=== PATIENT | female | born 1960 | race Caucasian/White ===

== ENCOUNTER → 2016-06-16 | Outpatient (REF) | payer OTHER ==
[2016-06-16 15:29] LABS: URINE CREATININE 24 HR 1017 mg/24hr (800-2800); URINE TOTAL VOLUME-24 HRS 1375 mL
== END ==
LOC: LAB 14:50
PROVIDERS: ATTEND Family Medicine
DX: N20.0 Calculus of kidney (principal)
CPT/HCPCS: 81050; 82507; 82570

== ENCOUNTER → 2016-06-23 | Outpatient (CLI) | payer OTHER | LOC: RAD 12:24 | PROVIDERS: ATTEND Physician Assistant Medical | DX: N23 Unspecified renal colic (principal); N20.0 Calculus of kidney | CPT/HCPCS: 74176 ==

== ENCOUNTER → 2016-07-10 | Outpatient (CLI) | payer OTHER ==
[~2016-07-10] MED LIST: AMOX-358 PO; HYDR-3702 PO; NO HOME MEDICATIONS
--- NOTE | 2016-07-10 09:21 | Diagnostic Imaging Report ---
PROCEDURE: CT abdomen and pelvis without contrast. TECHNIQUE: Multiple contiguous axial images were obtained through the abdomen and pelvis without the use of intravenous contrast. INDICATION: Known kidney stones. Bilateral flank pain. Comparison with 06/23/2016. FINDINGS: Double-J stent has been placed in the right ureter since previous exam. Stent extends to the inferior portion of the previously described stone in the renal pelvis. This has decompressed the collecting system of the right kidney with no hydronephrosis now present. Calculi are unchanged. Left kidney appears normal. The abdominal organs remain unchanged from previous exam. IMPRESSION: Placement of double-J stent right ureter with calculi again noted. There has been decompression of the right kidney with no hydronephrosis now. Dictated by: Dictated on workstation # [id number]
== END ==
LOC: RAD 08:51
PROVIDERS: ATTEND Urology
DX: N20.0 Calculus of kidney (principal); Z96.0 Presence of urogenital implants
CPT/HCPCS: 74176